=== PATIENT | male | born 1985 | race Two or more races ===

== ENCOUNTER 2018-01-15 20:25 | Emergency (ER) | payer SELFPAY ==
[2018-01-15 20:41] VITALS: BMI 31.6
--- NOTE | 2018-01-15 20:47 | C.PDOC ---
History Of Present Illness 32 y/o male presents to the ED complaining of right lower quadrant abdominal pain intermittently for the past 2 weeks. He denies any fever, chills, nausea, vomiting, or diarrhea. Otherwise patient has been tolerating PO. Appears anxious on arrival to the ED. Time Seen by Provider: 01/15/18 20:47 Chief Complaint (Nursing): Abdominal Pain History Per: Patient History/Exam Limitations: no limitations Onset/Duration Of Symptoms: Days Current Symptoms Are (Timing): Still Present Severity: Mild Pain Scale Rating Of: 4 Location Of Pain/Discomfort: RLQ Radiation Of Pain To:: None Quality Of Discomfort: "Pain" Associated Symptoms: denies: Vomiting, Diarrhea Alleviating Factors: None Recent travel outside of the [place]: No Past Medical History Reviewed: Historical Data, Nursing Documentation, Vital Signs Vital Signs: Last Vital Signs Temp 98.4 F 01/15/18 23:09 Pulse 102 H 01/15/18 23:09 Resp 19 01/15/18 23:09 BP 121/79 01/15/18 23:09 Pulse Ox 98 01/15/18 23:09 - Medical History PMH: No Chronic Diseases Surgical History: No Surg Hx Family History: States: No Known Family Hx - Social History Hx Tobacco Use: No Hx Alcohol Use: Yes Hx Substance Use: No - Immunization History Hx Tetanus Toxoid Vaccination: No Hx Influenza Vaccination: No Hx Pneumococcal Vaccination: No Review Of Systems Constitutional: Negative for: Fever, Chills Gastrointestinal: Positive for: Abdominal Pain. Negative for: Nausea, Vomiting , Diarrhea Physical Exam - Physical Exam Appears: Non-toxic, No Acute Distress Skin: Warm, Dry Head: Normacephalic Eye(s): bilateral: Normal Inspection Oral Mucosa: Moist Neck: Trachea Midline, Supple Chest: Symmetrical Cardiovascular: Rhythm Regular Respiratory: No Rales, No Rhonchi, No Wheezing Gastrointestinal/Abdominal: Bowel Sounds (tympanic to percussion), Soft, No Tenderness, No Guarding, No Rebound Back: Normal Inspection, No CVA Tenderness Extremity: Bilateral: Atraumatic, Normal Color And Temperature, Normal ROM Pulses: Left Dorsalis Pedis: Normal, Right Dorsalis Pedis: Normal Neurological/Psych: Oriented x3 Gait: Steady ED Course And Treatment - Laboratory Results Result Diagrams: 01/15/18 21:23 01/15/18 21:23 O2 Sat by Pulse Oximetry: 100 (RA) Pulse Ox Interpretation: Normal Progress Note: Blood work and urine sent. Patient started on IV fluids. Awaiting CT A/P with IV contrast. Reevaluation Time: 23:35 Reassessment Condition: Improved Disposition Counseled Patient/Family Regarding: Studies Performed, Diagnosis, Need For Followup - Disposition Referrals: [facility] [Outside] [facility] [Outside] Disposition: HOME/ ROUTINE Disposition Time: 20:47 Condition: FAIR Additional Instructions: Please return if symptoms recur Instructions: Constipation, Child (DC), Acute Abdomen (Belly Pain), Adult (DC) Forms: [employer] (Czech) - Clinical Impression Clinical Impression: Abdominal pain, Constipation - Scribe Statement The provider has reviewed the documentation as recorded by the Scribe (Priya Hernandez) Provider Attestation: All medical record entries made by the Scribe were at my direction and personally dictated by me. I have reviewed the chart and agree that the record accurately reflects my personal performance of the history, physical exam, medical decision making, and the department course for this patient. I have also personally directed, reviewed, and agree with the discharge instructions and disposition.
[2018-01-15] MEDS ORDERED: Sodium Chloride 0.9% 1,000 ML IV ONE (20:55)
[2018-01-15] MEDS ORDERED: Sodium Chloride 0.9% 1,000 ML ONE (21:13)
[2018-01-15 21:25] LABS: BASO % 0.5 % (0.0-2.0); EOS # 0.1 K/uL (0.0-0.7); EOS % 1.8 % (0.0-4.0); LYMPH # 2.7 K/uL (1.0-4.3); LYMPH % 31.5 % (20.0-40.0); MEAN CELL VOLUME 83.1 fL (80.0-94.0); MEAN CORPUSCULAR HEMOGLOBIN 27.4 pg (27.0-31.0); MEAN CORPUSCULAR HGB CONC 32.9 g/dL (33.0-37.0); MONO # 0.7 K/uL (0.0-0.8); MONO % 8.3 % (0.0-10.0); NEUT # 4.9 K/uL (1.8-7.0); NEUT % 57.9 % (50.0-75.0); NRBC % 0.1 % (0.0-2.0); RBC 5.86 Mil/uL (4.40-5.90); RED CELL DISTRIBUTION WIDTH 14.1 % (11.5-14.5); WHITE BLOOD COUNT 8.4 K/uL (4.8-10.8)
[2018-01-15 21:39] LABS: ALB/GLOB RATIO 1.2 (1.0-2.1); ALBUMIN 4.4 g/dL (3.5-5.0); ALT/SGPT 38 U/L (21-72); AST/SGOT 26 U/L (17-59); BLOOD UREA NITROGEN 19 mg/dL (9-20); CALCIUM 8.8 mg/dl (8.6-10.4); GFR AFRICAN-AMERICAN > 60; GFR NON-AFRICAN AMERICAN > 60; LIPASE 65 U/L (23-300)
[2018-01-15 21:47] LABS: SQUAMOUS EPITHIAL 2 /hpf (0-5); URINE BACTERIA RARE (<OCC); URINE BILIRUBIN NEGATIVE (NEGATIVE); URINE BLOOD NEGATIVE (NEGATIVE); URINE CLARITY Hazy (Clear); URINE COLOR Yellow (YELLOW); URINE GLUCOSE (UA) NORMAL (Normal); URINE LEUKOCYTE ESTERASE NEG Leu/uL (Negative); URINE PROTEIN 1+ mg/dL (NEGATIVE)
[2018-01-15] MEDS ORDERED: Iodixanol 320 MG/ML 100 ML BOTTLE IV ONE (21:54)
[2018-01-15 23:10] VITALS: BP 121/79; PULSE 102; RESP 19; TEMP 98.4
[2018-01-15 23:37] VITALS: O2SAT 100
--- NOTE | 2018-01-16 10:05 | CT ---
PROCEDURE: CT Abdomen and Pelvis without intravenous contrast HISTORY: abd pain COMPARISON: None. TECHNIQUE: Technique. Contrast dose: Radiation dose: Total exam DLP = mGy-cm. This CT exam was performed using one or more of the following dose reduction techniques: Automated exposure control, adjustment of the mA and/or kV according to patient size, and/or use of iterative reconstruction technique. FINDINGS: LOWER THORAX: Unremarkable. LIVER: Unremarkable. No gross lesion or ductal dilatation. GALLBLADDER AND BILE DUCTS: Unremarkable. PANCREAS: Unremarkable. No gross lesion or ductal dilatation. SPLEEN: Unremarkable. ADRENALS: Unremarkable. No mass. KIDNEYS AND URETERS: Unremarkable. No hydronephrosis. No solid mass. VASCULATURE: Unremarkable. No aortic aneurysm. BOWEL: Unremarkable. No obstruction. No gross mural thickening. APPENDIX: Unremarkable. Normal appendix. PERITONEUM: Unremarkable. No free fluid. No free air. LYMPH NODES: Unremarkable. No enlarged lymph nodes. BLADDER: Unremarkable. REPRODUCTIVE: Unremarkable. BONES: No acute fracture. OTHER FINDINGS: None. IMPRESSION: Unremarkable non contrast enhanced CT of the abdomen and pelvis.
== END 2018-01-16 00:27 | disposition home or self-care (01) ==
LOC: C.ER 20:25
DX: K59.00 Constipation, unspecified (principal); R10.31 Right lower quadrant pain
CPT/HCPCS: 74177; 80053; 81001; 83690; 85025; 99284; J7030; Q9967

== ENCOUNTER 2018-05-31 16:16 | Emergency (ER) | payer OTHER ==
[2018-05-31 16:17] VITALS: BMI 31.6
[2018-05-31 16:32] VITALS: BP 126/85; PULSE 103; RESP 18; TEMP 98.4; O2SAT 98
[2018-05-31] MEDS ORDERED: Dexamethasone 4 mg/1 ml IM STA (16:54)
--- NOTE | 2018-05-31 18:13 | CT ---
Date of service: 05/31/2018 PROCEDURE: CT NECK WITHOUT CONTRAST HISTORY: FB sensation/swelling of the throat COMPARISON: None available. TECHNIQUE: CT of the neck without intravenous contrast. Coronal and sagittal reformats generated. Radiation dose: Total exam DLP = 471.05 mGy-cm. This CT exam was performed using one or more of the following dose reduction techniques: Automated exposure control, adjustment of the mA and/or kV according to patient size, and/or use of iterative reconstruction technique. FINDINGS: NASOPHARYNX: Within normal limits. SUPRAHYOID NECK: No bulky mass in the oropharynx, oral cavity, parapharyngeal space and retropharyngeal space. There are mildly enlarged bilateral palatine tonsils. INFRAHYOID NECK: No bulky mass in the larynx, hypopharynx, and supraglottic space. Vocal cords intact. MASS: None. GLANDS: Parotid and submandibular glands unremarkable. Normal size thyroid gland, without nodule. LYMPH NODES: Normal. No pathologic lymphadenopathy. CERVICAL SPINE: No fracture or focal lesion. Within normal limits for the patient's age. OTHER FINDINGS: None. IMPRESSION: This examination is limited in the absence of intravenous contrast. Mild enlargement of the palatine tonsils. No bulky mass or pathologic adenopathy.
--- NOTE | 2018-05-31 18:36 | C.PDOC ---
History Of Present Illness 33 year old male presents to the ED for evaluation. Patient states he took an antibiotic pill for a tooth infection earlier today. Patient states the pill got stuck in his throat. He then was able to manually dislodge it and push the pill down. Patient then states his body rejected the pill, causing him to have an episode of vomiting. Patient now feels like his throat is closing up. Patient denies pruritus, rash, shortness of breath, difficulty breathing. Time Seen by Provider: 05/31/18 16:35 Chief Complaint (Nursing): ENT Problem History Per: Patient History/Exam Limitations: None Onset/Duration Of Symptoms: Hrs Current Symptoms Are (Timing): Still Present Past Medical History Reviewed: Historical Data, Nursing Documentation, Vital Signs Vital Signs: Last Vital Signs Temp 98.4 F 05/31/18 16:29 Pulse 103 H 05/31/18 16:29 Resp 18 05/31/18 16:29 BP 126/85 05/31/18 16:29 Pulse Ox 98 05/31/18 16:29 - Medical History PMH: No Chronic Diseases Surgical History: No Surg Hx Family History: States: Unknown Family Hx - Social History Hx Tobacco Use: No Hx Alcohol Use: Yes Hx Substance Use: No - Immunization History Hx Tetanus Toxoid Vaccination: No Hx Influenza Vaccination: No Hx Pneumococcal Vaccination: No Review Of Systems Respiratory: Negative for: Cough, Shortness of Breath Gastrointestinal: Positive for: Vomiting Physical Exam - Physical Exam Appears: Non-toxic, No Acute Distress Skin: Normal Color, Warm, Dry, No Rash Head: Atraumatic, Normacephalic Eye(s): bilateral: Normal Inspection Oral Mucosa: Moist Throat: Normal, No Erythema, No Exudate, No Drooling, Other (normal voice, speaks in full sentences) Neck: Supple Chest: Symmetrical, No Deformity, No Tenderness Cardiovascular: Rhythm Regular, No Murmur Respiratory: Normal Breath Sounds, No Rales, No Rhonchi, No Wheezing, Other (speaking in full sentences ) Extremity: Normal ROM, Capillary Refill (less than 2 seconds ) Neurological/Psych: Oriented x3, Normal Speech, Normal Cognition ED Course And Treatment O2 Sat by Pulse Oximetry: 98 (on RA) Pulse Ox Interpretation: Normal - CT Scan/US CT neck soft tissue Other Rad Studies (CT/US): Read By Radiologist, Radiology Report Reviewed CT/US Interpretation: Date of service: 05/31/2018. PROCEDURE: CT NECK WITHOUT CONTRAST. HISTORY: FB sensation/swelling of the throat. COMPARISON: None available. TECHNIQUE: CT of the neck without intravenous contrast. Coronal and sagittal reformats generated. Radiation dose: Total exam DLP = 471.05 mGy-cm. This CT exam was performed using one or more of the following dose reduction techniques: Automated exposure control, adjustment of the mA and/or kV according to patient size, and/or use of iterative reconstruction technique. FINDINGS: NASOPHARYNX: Within normal limits. SUPRAHYOID NECK: No bulky mass in the oropharynx, oral cavity, parapharyngeal space and retropharyngeal space. There are mildly enlarged bilateral palatine tonsils. INFRAHYOID NECK: No bulky mass in the larynx, hypopharynx, and supraglottic space. Vocal cords intact. MASS: None. GLANDS: Parotid and submandibular glands unremarkable. Normal size thyroid gland, without nodule. LYMPH NODES: Normal. No pathologic lymphadenopathy. CERVICAL SPINE: No fracture or focal lesion. Within normal limits for the patient's age. OTHER FINDINGS: None. IMPRESSION: This examination is limited in the absence of intravenous contrast. Mild enlargement of the palatine tonsils. No bulky mass or pathologic adenopathy. Progress Note: CT neck soft tissue ordered and reviewed. Benadryl PO and Decadron IM given. On reassessment, patient is resting comfortably, showing no signs of distress and is stable for discharge. Patient is advised to follow up with his PMD within 1-2 days for further evaluation. Return to the ED if symptoms worsen. Disposition - Disposition Referrals: Bear Canas MD [Staff Provider] - Disposition: HOME/ ROUTINE Disposition Time: 18:35 Condition: STABLE Additional Instructions: Follow up with your PMD and ENT specialist within 1-2 days. Return to ED if feel worse. Prescriptions: DiphenhydrAMINE [Benadryl] 25 mg PO .Q4-6 H #30 cap Ibuprofen [Motrin Tab] 600 mg PO Q8 #30 tab Instructions: Sore Throat, Adult (DC) Forms: [employer] (Faroese) - Clinical Impression Clinical Impression: Throat discomfort - PA / EQUAL OPPORTUNITY SPECIALIST / Resident Statement MD/DO has reviewed & agrees with the documentation as recorded. - Scribe Statement The provider has reviewed the documentation as recorded by the Scribe (Zoila Morris) All medical record entries made by the Scribe were at my direction and personally dictated by me. I have reviewed the chart and agree that the record accurately reflects my personal performance of the history, physical exam, medical decision making, and the department course for this patient. I have also personally directed, reviewed, and agree with the discharge instructions and disposition.
== END 2018-05-31 18:46 | disposition home or self-care (01) ==
LOC: C.ER 16:16
DX: R07.0 Pain in throat (principal)
CPT/HCPCS: 70490; 96372; 99283; J1100